=== PATIENT | male | born 1935 | race Caucasian/White ===

== ENCOUNTER 2020-10-03 10:26 | Emergency (ER) | payer MEDICARE, SELFPAY ==
[2020-10-03] VITALS (22 sets, daily range): BP systolic 130–170; BP diastolic 70–88; PULSE 52–73; RESP 12–20; TEMP 36.9; O2SAT 97–100
--- NOTE | ~2020-10-03 | XR_ITS ---
EXAMINATION: XR abdomen/kub 1V DATE: 10/03/2020 11:56 INDICATION: Left flank pain. TECHNIQUE: A supine view of the abdomen on 2 radiographs was obtained. COMPARISON: CT abdomen and pelvis 10/03/2020 FINDINGS: There are no dilated loops of bowel. There is a phlebolith in right pelvis. There is no uro lithiasis. IMPRESSION: 1. No urolithiasis. Reviewed, dictated and finalized at location A. [employer] IMPRESSION: 1. No urolithiasis.
--- NOTE | ~2020-10-03 | CT_ITS ---
EXAMINATION: CT abdomen pelvis wo con DATE: 10/03/2020 11:53 INDICATION: Left flank pain. TECHNIQUE: Computed tomography (CT) of the abdomen and pelvis was performed without intravenous contr ast. Automated exposure control and iterative reconstruction technique were employed. The dose-length product was 1214.34 mGy-cm. COMPARISON: CT abdomen and pelvis 01/21/2019 FINDINGS: The visualized portions of the lung bases demonstrate chronic peripheral reticular opacitie s. There is a small left pleural effusion. There is left atrial enlargement of the heart. There are c oronary artery calcifications. There are calcifications of aortic valve. No pericardial effusion. The re is a large sliding hiatal hernia. Calcified mediastinal lymph nodes are consistent with old granul omatous disease. The liver is normal. There are gallstones in the gallbladder, which is normal in siz e. Calcifications in the spleen are consistent with old granulomatous disease. The pancreas and adren al glands are normal. There are cysts in the kidneys measuring up to 4.6 cm on the right. There is no urolithiasis. There is a right inguinal hernia containing fat and a portion of the bladder. There ar e changes of left inguinal hernia repair. The prostate is severely enlarged. There is diverticulosis of the colon without evidence of diverticulitis. The appendix is not visualized. There are no patholo gically enlarged lymph nodes. There is no free intraperitoneal fluid. There is severe lumbar spondylo sis. There is mild chronic height loss of multiple thoracic vertebral bodies. 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 There is 13 mm anterolisthesis of L5 on S1. IMPRESSION: 1. Small left pleural effusion. 2. Large sliding hiatal hernia. 3. Right inguinal hernia containing a portion of the bladder. 4. Cholelithiasis. No evidence of acute cholecystitis. Reviewed, dictated and finalized at location A. ER BARBER
--- NOTE | 2020-10-03 10:58 | ED.BACK ---
HPI - Back Pain/Injury General Chief Complaint: Back Pain/Injury Stated Complaint: back pain Time Seen by Provider: 10/03/20 10:33 Source: patient Mode of arrival: ambulatory Limitations: no limitations History of Present Illness HPI Narrative: This patient is an 85 year old male who presents for evaluation of left lower back pain. He states last night he had severe pain to left lower back . He states this pain remained until he was able to urinate. He denies any blood in his urine, nausea, vomiting , fever , abdominal pain or diaphoresis. His pain has resolved. He denies radiation of his pain. Related Data Home Medications Medication Instructions Recorded Confirmed Xarelto 20 mg PO QPM 09/21/19 09/14/20 aspirin 81 mg PO DAILY 09/21/19 09/14/20 carvedilol 12.5 mg PO BID 09/21/19 09/14/20 finasteride 5 mg PO DAILY 09/21/19 09/14/20 folic acid 1 mg PO DAILY 09/21/19 09/14/20 furosemide 40 mg PO DAILY 09/21/19 09/14/20 isosorbide mononitrate 30 mg PO DAILY 09/21/19 09/14/20 finasteride 1 mg tablet 1 mg PO DAILY 11/17/19 09/14/20 memantine 5 mg tablet 5 mg PO BID tablet 09/14/20 09/14/20 Allergies Allergy/AdvReac Type Severity Reaction Status Date / Time No Known Allergies Allergy Verified 09/14/20 13:36 Review of Systems Review of Systems: All systems reviewed & are unremarkable except as noted in HPI and below Cardiovascular: Cardiovascular: Denies chest pain Respiratory: Respiratory: Denies cough and Denies dyspnea Gastrointestinal: Gastrointestinal: Denies abdominal pain, Denies nausea and Denies vomiting Genitourinary: Genitourinary: Denies hematuria [facility] Past Medical History Medical History (Updated 10/03/20 @ 14:47 by Keiko Jeffrey MD) Atrial fibrillation, chronic Bilateral inguinal hernia without obstruction or gangrene Chronic anticoagulation Cutaneous horn Dementia GERD (gastroesophageal reflux disease) Heart disease History of actinic keratosis HTN (hypertension) Parkinson disease Skin cancer screening Stomach ulcer Stroke Surgical History Surgical History H/O eye surgery H/O left inguinal hernia repair History of open heart surgery Family History Family History Father Family history of cardiovascular disease Acute myocardial infarction Mother Cerebrovascular accident Sibling Malignant neoplasm of prostate Family history of pancreatic cancer Social History Social History Smoking status: Former smoker Second hand tobacco smoke exposure: No Smoking end date: 11/03/1964 Alcohol intake: never Substance use: never Substance use type: does not use Gender identity (if verbalized by the patient): Male Spiritual care concerns: Yes (Religion) Agree to blood products: Yes Exam Const: General: no acute distress and alert Orientation/consciousness: patient oriented x3 Resp: Effort & Inspection: normal respiratory effort and no use of accessory muscles Auscultation: clear to auscultation bilaterally Cardio: Rate: regular rate Rhythm: regular rhythm Heart sounds: no murmurs GI: GI Palp: Yes Soft to palpation, No Tenderness to palpation present (GI) and No Guarding due to palpation present (GI) Auscultation: normal bowel sounds Back/Spine/Pelvis: Back: no CVA tenderness Skin: General skin exam: normal color Rashes: no rashes Neuro: General: patient oriented x3 and moves all extremities Course Reevaluation(s) Reevaluation #1: PAtient has no complaints. He was given antibiotics for a UTI. Date: 10/03/20 Time: 14:46 Vital Signs Vital signs: Vital Signs Pulse Rate 73 10/03/20 11:13 Respiratory Rate 12 10/03/20 11:13 Blood Pressure 142/88 H 10/03/20 11:13 Pulse Oximetry 97 10/03/20 11:13 Temperature 98.4 F 10/03/20 11:1
[2020-10-03 11:24] LABS: Basophils Percent Auto 0.3 % (0.2-1.2); Eosinophils Absolute Auto 0.2 K/mm3 (0-0.3); Eosinophils Percent Auto 3.3 % (0-4.4); Hematocrit 43.2 % (42.0-52.0); Hemoglobin 14.7 g/dL (14.0-18.0); Immature Granulocyte Absolute 0.03 K/mm3 (0.00-0.031); Immature Granulocyte Percent A 0.5 % (0-0.5); Lymphocytes Absolute Auto 0.67 K/mm3 (0.9-3.2); Lymphocytes Percent Auto 10.1 % (18.3-44.2); Mean Corpuscular Hemoglobin 32.2 pg (26-34); Mean Corpuscular Volume 94.7 fl (80-100); Mean Platelet Volume 10.2 fl (7.4-10.4); Monocytes Absolute Auto 0.5 K/mm3 (0.1-0.6); Monocytes Percent Auto 7.7 % (2.6-8.5); Neutrophils Absolute Auto 5.2 K/mm3 (1.3-6.7); Neutrophils Percent Auto 78.1 % (45.5-73.1); Platelet Count Result 136 k/mm3 (150-375); Red Blood Count 4.56 M/mm3 (4.6-6.20); Red Cell Distribution Width 13.2 % (11.5-14.5); White Blood Count 6.6 K/mm3 (4.5-10.0)
[2020-10-03 11:29] LABS: INR 2.7; Prothrombin Time 29.1 Seconds (11.1-14.7)
[2020-10-03 11:30] LABS: Partial Thromboplastin Time 44.5 SECONDS (22.3-36.8)
[2020-10-03 11:32] LABS: Albumin Level 3.4 g/dL (3.5-5.1); Alkaline Phosphatase 82 U/L (38-126); Anion Gap 5 mmol/L (8-16); Aspartate Amino Transferase 20 U/L (17-59); Bilirubin,Total 2.2 mg/dL (0.2-1.3); Blood Urea Nitrogen 24 mg/dL (9-20); Calcium 8.7 mg/dL (8.4-10.2); Carbon Dioxide 29 mmol/L (22-30); Chloride 105 mmol/L (98-107); Estimated CRCL calculation 36 ml/min; Estimated Glomerular Filt Rate 45; Glucose 98 mg/dL (75-110); Sodium 139 mmol/L (137-145)
[2020-10-03 11:39] LABS: Alanine Aminotransferase < 4 U/L (4-50)
[2020-10-03 12:43] LABS: Add Urine Microscopic? YES; Appearance Urine Clear (Clear); Bacteria Urine 4+ /hpf; Bilirubin Urine Negative (Negative); Blood Urine Negative (Negative); Color Urine Yellow (Yellow); Glucose Urine UA Negative (Negative); Ketones Urine Negative (Negative); Leukocyte Esterase Ur 2+ LEU/UL (Negative); Mucus Urine Rare /lpf; Nitrate Urine Positive (Negative); Protein Urine 2+ mg/dL (Negative); Specific Grav Ur 1.018 (1.001-1.035); WBC Urine 51-75 /hpf
[2020-10-03] MEDS: CIPROFLOXACIN 500 MG TAB PO (14:14)
== END 2020-10-03 15:02 | disposition home or self-care (01) ==
PROVIDERS: Emergency Provider General Practice; PCP Family Medicine
DX: N39.0 Urinary tract infection, site not specified (principal); I48.20 Chronic atrial fibrillation, unspecified; Z79.01 Long term (current) use of anticoagulants; F03.90 Unspecified dementia, unspecified severity, without behavioral disturbance, psychotic disturbance, mood disturbance, and anxiety; I11.9 Hypertensive heart disease without heart failure; G20 Parkinson's disease; Z86.73 Personal history of transient ischemic attack (TIA), and cerebral infarction without residual deficits; Z87.891 Personal history of nicotine dependence
CPT/HCPCS: 36415; 74018; 74176; 80053; 81001; 85025; 85055; 85610; 85730; 87077; 87086; 87088; 87186; 99284; A9270

== ENCOUNTER → 2020-11-23 16:15 | Outpatient (REF) | payer MEDICARE, SELFPAY | LOC: ANHLAB 16:15 | PROVIDERS: PCP Family Medicine; Visit Provider Nurse Practitioner | DX: L98.9 Disorder of the skin and subcutaneous tissue, unspecified (principal) | CPT/HCPCS: 88305 ==

== ENCOUNTER 2021-01-09 13:27 | Outpatient (CLI) | payer MEDICARE, SELFPAY | END 2021-01-09 13:28 | disposition home or self-care (01) | LOC: ANHCOVIDVC 13:27 | PROVIDERS: PCP Family Medicine | DX: Z23 Encounter for immunization (principal) | CPT/HCPCS: 0001A; 91300 ==

== ENCOUNTER → 2021-01-15 09:28 | Outpatient (REF) | payer MEDICARE, SELFPAY | LOC: ANHLAB 09:28 | PROVIDERS: PCP Family Medicine; Visit Provider Nurse Practitioner | DX: C44.319 Basal cell carcinoma of skin of other parts of face (principal) | CPT/HCPCS: 88305; 88331 ==

== ENCOUNTER 2021-01-30 13:28 | Outpatient (CLI) | payer MEDICARE, SELFPAY | END 2021-01-30 13:29 | disposition home or self-care (01) | LOC: ANHCOVIDVC 13:28 | PROVIDERS: PCP Family Medicine | DX: Z23 Encounter for immunization (principal) | CPT/HCPCS: 0002A; 91300 ==